=== PATIENT | male | born 1965 | race Caucasian/White ===

== ENCOUNTER 2020-03-04 18:05 | Outpatient (REF) | payer MEDICAID, SELFPAY ==
[2020-03-04 22:13] LABS: HGB 13.5 g/dL (13.5-17.5); MCH 33.8 pg (27.0-33.0); MCHC 33.8 % (32.0-36.0); MPV 11.1 fL (8.0-11.0); Platelet Count 241 10^3/uL (130-400); RDW 13.4 % (11.8-14.1); RDW-SD 49.7 fL; WBC 8.38 10^3/uL (4.4-10.8)
[2020-03-04 22:37] LABS: Iron 88 ug/dL (65-175); Total Iron Binding Capacity 322 ug/dL (250-450); Transferrin Sat 27 % (20-55)
[2020-03-04 22:49] LABS: ALT 21 U/L (16-63); Anion Gap 7.1 mmol/L (3-11); BUN 17 mg/dL (7-18); CO2 32.9 mmol/L (21.0-32.0); Calcium 8.9 mg/dL (8.5-10.1); Chloride 100 mmol/L (98-107); Ferritin 143 ng/mL (26-388); Glucose 93 mg/dL (74-106); LDL CHOLESTEROL 88 mg/dL (<100); Sodium 140 mmol/L (136-145)
== END 2020-03-04 18:25 ==
LOC: NCHCN 18:05
PROVIDERS: PCP Internal Medicine; Visit Provider Internal Medicine
DX: D64.9 Anemia, unspecified (principal); I10 Essential (primary) hypertension; F11.21 Opioid dependence, in remission; M17.0 Bilateral primary osteoarthritis of knee; E66.9 Obesity, unspecified
CPT/HCPCS: 80048; 83721; 85027; 82728; 83540; 83550; 84460

== ENCOUNTER 2021-04-01 17:55 | Outpatient (REF) | payer MEDICAID, SELFPAY ==
[2021-04-02 06:55] LABS: BUN 10 mg/dL (7-18); CREATININE 0.8 mg/dL (0.70-1.30); Calcium 8.8 mg/dL (8.5-10.1); Chloride 104 mmol/L (98-107); Glucose 101 mg/dL (74-106); LDL CHOLESTEROL 87 mg/dL (<100); Potassium 4.2 mmol/L (3.5-5.1); Sodium 142 mmol/L (136-145)
[2021-04-02 06:56] LABS: ALT 21 U/L (16-63); Anion Gap 9.4 mmol/L (3-11); CO2 28.6 mmol/L (21.0-32.0)
== END 2021-04-01 17:56 | disposition home or self-care (01) ==
LOC: NCHCN 17:55
PROVIDERS: PCP Internal Medicine; Visit Provider Internal Medicine
DX: F11.21 Opioid dependence, in remission (principal); M17.9 Osteoarthritis of knee, unspecified; K04.7 Periapical abscess without sinus
CPT/HCPCS: 80048; 83721; 84460

== ENCOUNTER 2022-06-13 10:27 | Outpatient (CLI) | payer MEDICAID, SELFPAY ==
--- NOTE | 2022-06-13 10:00 | DI.RAD_ITS ---
Exam(s) XR STANDING ALIGNMENT EXAM: XR STANDING ALIGNMENT CLINICAL HISTORY: L TKR planning. TECHNIQUE: 2D digital imaging was performed. Standing AP views were performed from the pelvis throu gh the ankles. COMPARISON: No exams were available for comparison FINDINGS: BONES: No acute fracture is present. No bony destructive lesion is seen. Leg length discrepancy: No significant JOINTS: Knees: Severe narrowing bilateral medial femoral tibial joint spaces, left greater than right . Prior left ACL repair. Prominent bilateral varus angulation at the knees, left greater than right . The ankle joints are unremarkable. The hip joints are unremarkable. SOFT TISSUE: Normal. IMPRESSION: Severe degenerative changes of both knees, left greater than right. No significant leg length discrepancy. DATA REPOSITORY: RADIATION DOSE DELIVERED:
== END 2022-06-13 10:28 | disposition home or self-care (01) ==
LOC: DIORS 10:27
PROVIDERS: PCP Internal Medicine; Referring Provider Internal Medicine; Visit Provider Physician Assistant
DX: M17.0 Bilateral primary osteoarthritis of knee (principal)
CPT/HCPCS: 77073

== ENCOUNTER 2022-06-30 01:52 | Outpatient (CLI) | payer MEDICAID, SELFPAY ==
[2022-06-30 15:15] LABS: HCT 39.2 % (40.0-50.0); HGB 13.7 g/dL (13.5-17.5); MCH 34.7 pg (27.0-33.0); MCHC 34.9 % (32.0-36.0); MCV 99 fL (80-95); MPV 9.3 fL (8.0-11.0); Platelet Count 244 10^3/uL (130-400); RBC 3.95 10^6/uL (4.36-5.78); RDW 14.2 % (11.8-14.1); RDW-SD 52.4 fL; WBC 8.29 10^3/uL (4.4-10.8)
[2022-06-30 16:09] LABS: Anion Gap 7.2 mmol/L (3-11); BUN 11 mg/dL (7-18); CO2 29.8 mmol/L (21.0-32.0); CREATININE 0.7 mg/dL (0.70-1.30); Chloride 101 mmol/L (98-107); Estimated GFR 107.47 (mL/min/1.73m2); Glucose 95 mg/dL (74-106); Sodium 138 mmol/L (136-145)
== END 2022-06-30 01:53 | disposition home or self-care (01) ==
LOC: LBO 01:52
PROVIDERS: PCP Internal Medicine; Visit Provider Student in an Organized Health Care Education/Training Program
DX: M17.12 Unilateral primary osteoarthritis, left knee (principal); Z01.818 Encounter for other preprocedural examination
CPT/HCPCS: 36415; 80048; 85027

== ENCOUNTER 2022-07-06 07:19 | Day surgery (SDC) | payer MEDICAID, SELFPAY ==
[2022-07-06] VITALS (9 sets, daily range): BP systolic 116–197; BP diastolic 50–88; PULSE 70–88; RESP 17–25; TEMP 36.2–37; O2SAT 95–98; BMI 34.7
--- NOTE | 2022-07-06 07:48 | DSE_ITS ---
Date of service: 07/06/22 Time of Service: 12:48 DS: Diagnosis Discharge Diagnosis (1) Left knee DJD: Status: Acute Discharge Plan Disposition Patient Disposition: Home Condition: Good Discharge Details Reason For Visit: Left Knee DJD Attending Provider: Mateo Moyer Primary Care Provider: Sesar Jarrett Home Meds and New Rx's Prescriptions: New acetaminophen 500 mg tablet 1,000 mg PO Q8H PRN (Reason: pain) Qty: 90 3RF aspirin 81 mg tablet,delayed release (DR/EC) 81 mg PO BID Qty: 60 0RF dexamethasone 4 mg tablet 4 mg PO DAILY Qty: 2 0RF Rx Instructions: Starting Post-Operative Day #1 (Day after surgery) gabapentin 300 mg capsule 300 mg PO QHS Qty: 14 1RF naproxen 500 mg tablet 500 mg PO BID Qty: 60 0RF pantoprazole 40 mg tablet,delayed release (DR/EC) 40 mg PO DAILY Qty: 30 0RF oxycodone 15 mg tablet 15 mg PO Q4H PRNQty: 18 0RF No Action buprenorphine-naloxone [Suboxone] 12-3 mg film 1 film buccal Q24H benazepril-hydrochlorothiazide 20-25 mg tablet 1 tab PO DAILY naloxone [Narcan] 4 mg/actuation spray,non-aerosol 4 mg intranasal Q2M PRN Rx Instructions: spray 1 dose into ONE nostril; alternate nostrils w each dose until help arrives naproxen 500 mg tablet 500 mg PO BID PRN Spiriva with HandiHaler 18 mcg capsule, w/inhalation device 1 cap inhalation DAILY Rx Instructions: puncture 1 cap using device; one dose = 2 inhalations buprenorphine-naloxone [Suboxone] 8-2 mg film 2 film sublingual DAILY Rx Instructions: place 1 strip/tab under (each) side of tongue albuterol sulfate [ProAir HFA] 90 mcg/actuation HFA aerosol inhaler 2 puff inhalation Q6H PRN Discharge Instructions Additional Instructions: Total Knee Discharge Instructions Activity: The most important activity is to walk and to work on gentle motion (both flexion and extension). You should try to take short walks a few times a day. It is important that when resting you work on keeping the knee straight. Avoid putting a pillow behind the knee as this will encourage flexion. Work on range of motion exercises as provided by Physical Therapy. - Start outpatient physical therapy within 2 weeks. - You should wear the DONALDO hose on both legs for 2 weeks. You may remove these at night. You may also use any compression sock in place of the DONALDO hose. - Utilize [employer] to review exercises, see videos on exercises and obtain basic information pertaining to your surgery and your recovery. Dressing: Remove the Benny wrap by 2 days after your surgery and put on the DONALDO stocking given to you from the hospital. Keep the surgical dressing (underneath the BENNY wrap) in place for at least one week. After the first week it may be removed and replaced with light gauze and tape or nothing. The wound and dressing may get wet after 3 days but avoid soaking the dressing or otherwise it will need to be changed. Many people prefer covering the dressing with cling wrap (saran wrap) to minimize it from getting soaked. If it gets wet, just pat dry. If it starts to peel off then it will need to be changed. Medications: - You should take Tylenol and anti-inflammatory Naproxen as your primary pain control medications. If the Celebrex is too expensive or not covered, please call the office for another alternative (Advil/Ibuprofen or Naproxen/Aleve) - You have been prescribed a stronger pain medication Oxycodone for breakthrough pain, take as needed as prescribed. Take as little as this as needed. You will continue to take your Suboxone as previously prescribed. - You have also been prescribed a stomach acid reduction agent Pantoprozole to help reduce stomach acid and reflux. - You have been prescribed Gabapentin to take at night for restlessness and nerv e pain. - You will be taking Aspirin 81mg twice a day for DVT prevention unless instructed otherwise. - You have also been prescribed Decadron to take to control post-operative nausea and pain. You will start this tomorrow. - If you have constipation you should take Colace or Miralax (both [id number]). It takes most people 3-4 days to have a bowel movement. Follow-up: 2 weeks If you have any acute concerns or questions, please do not hesitate to contact the office at [phone]. You may contact Dr. Moyer with any questions after hours through the hospital at [phone] or on his cell phone at [phone]. Referrals: Mateo Moyer MD [ [facility] STAFF PHYSICIAN] - Equipment/Supplies: Walker Activity:: Activity as Tolerated Shower/Bathe:: Cover Diet:: As Tolerated Discharge Orders Discharge Orders: Discharge Order (Routine); Ordered 07/06/22 Ordered By: Mateo Moyer DS: Summary Time Spent with Patient providing and/or coordinating discharge services: Less than 30 minutes Status at Discharge Functional status at discharge: uses cane/walker Overall status at discharge: patient is progressing back to baseline Mental Status: mental status grossly normal Speech and Movement: speech and movement normal Mood: congruent mood Affect: normal affect Exam Psych Mental Status: mental status grossly normal Speech and Movement: speech and movement normal Mood: congruent mood Affect: normal affect DS: Data Vitals/I&O Vitals and I&O: Vital Signs Temperature 37 C 07/06/22 07:41 Pulse 79 07/06/22 07:41 Pulse Rhythm Regular 07/06/22 07:41 Respiratory Rate 18 07/06/22 07:41 Respiratory Depth Normal 07/06/22 07:41 Blood Pressure 127/86 07/06/22 07:41 Pulse Oximetry 97 07/06/22 07:41 Oxygen Delivery Method Room Air 07/06/22 07:41 Oxygen Flow Rate 0 07/06/22 07:41 Intake & Output 07/05/22 07/05/22 07/06/22 11:59 23:59 11:59 Weight 109.9 kg PFSH All Active Problems COPD (chronic obstructive pulmonary disease) (Chronic) Left knee DJD (Acute) Hypertension (Chronic) MATTHEW (obstructive sleep apnea) (Chronic) Smoker (Acute) Hyperlipidemia (Acute) Venous insufficiency (Acute) Bilateral primary osteoarthritis of knee (Acute) Medical History Dyspnea on exertion Erectile dysfunction History of narcotic addiction Sciatica, right side TB lung, latent Surgical History Left inguinal hernia (~2006) S/P ACL reconstruction (2009) Left knee Social History Smoking/Tobacco Use Status: Current every day Tobacco Type: cigarettes Tobacco: How many years used: 34 Smoking risk assessment performed?: Yes Alcohol Intake: current Alcohol Intake frequency: a few times a week Alcohol type: beer Drug use: Occasionally Substance use type: crack/cocaine Details: on suboxone - last PCP note from 07/29/21 reports sporadic use of cocaine Do you feel safe at home: Yes Do you feel safe in your relationship?: Yes Time Spent with Patient Time Spent with Patient: <45 minutes Time was spent: preparing to see the patient(eg.review tests), ordering medications,tests, procedures and counseling the patient
--- NOTE | 2022-07-06 07:55 | ANES.PREOP_ITS ---
General Info Date of Service Date Performed: 07/06/22 Height: 5 ft 10 in Weight: 109.9 kg Body Mass Index (BMI): 34.7 Surgical Procedure: Operation Date: 07/06/22 10:40 Proposed Procedure Side Surgeon p Knee Total Arthroplasty, OrthAlign, Cementless PS Left Mateo Moyer MD Meds Allergies and Home Medications Allergies Allergy/AdvReac Type Severity Reaction Status Date / Time codeine AdvReac Intermediate gi upset Verified 07/06/22 07:48 Penicillins AdvReac Intermediate GI upset Verified 07/06/22 07:48 Home Medication Medication Instructions Recorded albuterol sulfate 90 mcg/actuation 2 puff inhalation Q6H PRN 08/03/21 aerosol inhaler (ProAir HFA) benazepril 20 1 tab PO DAILY 08/03/21 mg-hydrochlorothiazide 25 mg tablet buprenorphine 8 mg-naloxone 2 mg 2 film sublingual DAILY 08/03/21 sublingual film (Suboxone) naloxone 4 mg/actuation nasal 4 mg intranasal Q2M PRN 08/03/21 spray (Narcan) naproxen 500 mg tablet 500 mg PO BID PRN 08/03/21 tiotropium bromide 18 mcg capsule 1 cap inhalation DAILY 08/03/21 with inhalation device (Spiriva with HandiHaler) buprenorphine 12 mg-naloxone 3 mg 1 film buccal Q24H 06/13/22 sublingual film (Suboxone) acetaminophen 500 mg tablet 1,000 mg PO Q8H PRN pain #90 tabs 07/06/22 aspirin 81 mg tablet,delayed 81 mg PO BID #60 tabs 07/06/22 release dexamethasone 4 mg tablet 4 mg PO DAILY #2 tabs 07/06/22 gabapentin 300 mg capsule 300 mg PO QHS #14 caps 07/06/22 naproxen 500 mg tablet 500 mg PO BID #60 tabs 07/06/22 oxycodone 15 mg tablet 15 mg PO Q4H PRN #18 tabs 07/06/22 pantoprazole 40 mg tablet,delayed 40 mg PO DAILY #30 tabs 07/06/22 release Current Visit Medications: Current Medications Generic Name Dose Route Start Last Admin Trade Name Freq PRN Reason Stop Dose Admin Acetaminophen 1,000 mg 07/06/22 06:00 Acetaminophen 500 Mg Tab PO 07/06/22 18:00 PREOP ABDIRIZAK Acetaminophen 1,000 mg 07/06/22 08:30 Acetaminophen 500 Mg Tab PO TID ABDIRIZAK Celecoxib 400 mg 07/06/22 06:00 Celecoxib 200 Mg Cap PO 07/06/22 18:00 PREOP ABDIRIZAK Gabapentin 300 mg 07/06/22 06:00 Gabapentin 300 Mg Cap PO 07/06/22 18:00 PREOP ABDIRIZAK Hydromorphone HCl 1 mg 07/06/22 07:47 Hydromorphone 2 Mg/Ml Syr IVP Q2H PRN PRN Tranexamic Acid 1,000 mg/ 60 mls @ 360 mls/hr 07/06/22 06:00 Sodium Chloride IVPB 07/06/22 18:00 PREOP ABDIRIZAK Ringer's Solution 1,000 mls @ 80 mls/hr 07/06/22 06:00 IV 08/04/22 23:59 INFUSION ABDIRIZAK Cefazolin Sodium/Dextrose 2 gm in 50 mls @ 100 mls/hr 07/06/22 06:00 Ancef Duplex IVPB 08/04/22 23:59 PREOP ABDIRIZAK Cefazolin Sodium/Dextrose 1 gm in 50 mls @ 100 mls/hr 07/06/22 12:00 Ancef Duplex IVPB 07/07/22 04:29 Q8H [facility] IV Miscellaneous Supplies 1 each 07/06/22 06:00 Iv Access IV 08/04/22 23:59 DIRECTED ABDIRIZAK Ondansetron HCl 4 mg 07/06/22 07:47 Ondansetron 4 Mg/2 Ml Vial IVP Q6H PRN PRN Nausea Oxycodone HCl 0 mg 07/06/22 07:47 Oxycodone 5 Mg Tab PO Q3H PRN PRN Pain Sodium Chloride 0 ml 07/06/22 06:00 Normal Saline Flush 10 Ml Syr IV 08/04/22 23:59 PRN PRN Sodium Chloride 0 ml 07/06/22 06:00 Normal Saline 10 Ml Vial IJ 08/04/22 23:59 DIRECTED PRN Sterile Water 0 ml 07/06/22 06:00 Water,Injection,Sterile 10 Ml Vial IJ 08/04/22 23:59 DIRECTED PRN PFSH Active Problems Active Problems: Problem Status Onset Code COPD (chronic obstructive pulmonary disease) J44.9 Left knee DJD M17.12 Hypertension I10 MATTHEW (obstructive sleep apnea) G47.33 Smoker F17.200 Hyperlipidemia E78.5 Venous insufficiency I87.2 Bilateral primary osteoarthritis of knee M17.0 Medical History Medical History Dyspnea on exertion Erectile dysfunction History of narcotic addiction Sciatica, right side TB lung, latent Medical History Comments:: 07/06/22 - reports some post nasal drip. Also reports dry mouth. Smoked cigarette at 6:30am. Pt reports sometimes his sinues close up ayt night time Surgical History Surgical History Left inguinal hernia (~2006) S/P ACL reconstruction (2009) Left knee Tobacco Smoking/Tobacco Use Status: Current every day Tobacco Type: cigarettes Smoking cigarettes per day: 20 Alcohol Alcohol Intake: current Alcohol intake frequency: a few times a week Alcohol type: beer Substance Use Substance use: Occasionally Substance use type: crack/cocaine Details: on suboxone - last PCP note from 07/29/21 reports sporadic use of cocaine Vital Signs and Lab Results Vital Signs Most Recent Vital Signs in EMR: Most Recent Vital Signs Temp Pulse Resp BP Pulse Ox 37 C 79 18 127/86 97 07/06/22 07:41 07/06/22 07:41 07/06/22 07:41 07/06/22 07:41 07/06/22 07:41 Lab Results Blood Type / Crossmatch: No Data to Display Complete Blood Count: White Blood Count 8.29 10^3/uL (4.4-10.8) 06/30/22 15:10 Red Blood Count 3.95 10^6/uL (4.36-5.78) L 06/30/22 15:10 Hemoglobin 13.7 g/dL (13.5-17.5) 06/30/22 15:10 Hematocrit 39.2 % (40.0-50.0) L 06/30/22 15:10 Platelet Count 244 10^3/uL (130-400) 06/30/22 15:10 Complete Metabolic Panel: Sodium 138 mmol/L (136-145) 06/30/22 15:10 Potassium 4.0 mmol/L (3.5-5.1) 06/30/22 15:10 Chloride 101 mmol/L (98-107) 06/30/22 15:10 Carbon Dioxide 29.8 mmol/L (21.0-32.0) 06/30/22 15:10 BUN 11 mg/dL (7-18) 06/30/22 15:10 Creatinine 0.7 mg/dL (0.70-1.30) 06/30/22 15:10 Est GFR (CKD-EPI 2020) 107.47 (mL/min/1.73m2) 06/30/22 15:10 Calcium 9.0 mg/dL (8.5-10.1) 06/30/22 15:10 Glucose 95 mg/dL (74-106) 06/30/22 15:10 Liver Function Panel: No Data to Display Coagulation Panel: No Data to Display Cardiac Panel: No Data to Display Arterial Blood Gas: No Data to Display Venous Blood Gas: No Data to Display Pancreas Panel: No Data to Display Thyroid Panel: No Data to Display Infectious Disease: No Data to Display Blood Cultures: No Data to Display Toxicology Panel: No Data to Display Anesthesia Assessment and Plan Anesthesia History Personal History: No History of Anesthesia Complications Family History: No Family History of Anesthesia Complications Exercise Tolerance Exercise Tolerance: Metabolic Equivalents>4 Pertinent Negatives Pertinent Negatives: No Symptoms of GERD Cardiac & Pulmonary Exam Cardiac Exam: Normal S1/S2 Heart Sounds Pulmonary Exam: Clear Bilateral Breath Sounds Implantable Cardiac Device Does patient have a Pacemaker or an ICD?: No Airway Exam Known Difficult Airway: No Mallampati Class: 1 Mouth Opening: Normal (> 3cm) Thyromental Distance: Greater than 3 cm Neck Range of Motion: Full ROM Neck Circumference: Normal Teeth Condition: Normal Dentition ASA Classification ASA Score: ASA 2 Emergency Case?: No NPO Status NPO Status: NPO Clears >2 hours, Solids >8 hours Anesthesia Plan Resuscitation Status: Full Code Anesthesia Technique: Spinal Anesthesia Airway Planned: Natural Airway Pain Management: Surgeon and patient request nerve block Monitors Used: Standard Monitors
[2022-07-06] MEDS: Acetaminophen 500 MG TAB 1000 MG PO (08:00)
[2022-07-06] MEDS: Gabapentin 300 MG CAP PO (08:00)
[2022-07-06] MEDS: Lactated Ringers 1,000 ML 80 ML IV (08:14)
--- NOTE | 2022-07-06 08:52 | W.ANESNERVE ---
Nerve Block Single Injection Procedure Date and Time Date Performed: 07/06/22 Procedure Start: 08:32 Location Where Procedure Performed Procedure Location: Day Surgery Unit Reason Performed: Postoperative Analgesia Requesting Provider: Mateo Moyer Timeout Performed Timeout Performed: Yes Monitoring Used ECG, Blood Pressure, SpO2 and See EMR for corresponding vital signs Sterility Sterility: Hand Hygiene, Surgical Cap, Surgical Mask, Sterile Gloves and Chlorhexidine Sedation Given During Procedure Sedation Given (Indicate Dose Given): No Sedation given Patient Mental Status Patient Mental Status: Awake Nerve Block 1st Nerve Block: Laterality: Left Block Type: Adductor Canal Ultrasound Image Saved?: Yes Needle / Catheter Used: 100mm SonoPlex II Local Anesthetic Bolus (Indicate Dose Given): Lidocaine used for local infiltration of skin, Injected in 3-5ml increments after negative blood aspiration and Bupivacaine 0.25% Dose:: 20ml Additives (Indicate Dose Given): None Ultrasound: Sterile probe cover and gel used Nerve Stimulator: Not Used Paresthesia: None Procedure Tolerated: No Complications and Patient tolerated well Procedure Outcome: Successful Performed By: Kuldip Dooley
[2022-07-06] MEDS: ceFAZolin 2 GM/50 ML BAG IVPB (09:25)
--- NOTE | 2022-07-06 11:40 | ROE_ITS ---
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 Depuy Attune Cementless Posterior Stabilized Femoral Component, Size 8 2. Depuy Attune Cementless Rotating Platform Tibial Component, Size 8 3. Depuy Attune 8x14 PS/RP Poly 4. Depuy Attune Patellar Component, Size 38 Indications: I have seen Stuart in clinic for symptoms of RIGHT knee arthritis, confirmed with radiographic findings. Stuart has exhausted nonoperative methods and was having significant limitations in daily function and desired better function and less pain. I discussed the technical details of a knee replacement. I explained the risks of the procedure to include, but not limited to, bleeding, infection, pain, stiffness, fracture, damage to nerves and vessels, damage to muscles and tendons, loosening, need for repeat procedure, blood clot and cardiopulmonary demise. Despite these risks, Stuart elected to proceed. Findings: There was significant signs of arthritis throughout the knee involving all 3 compartments. There is significant deformity of the medial tibia with large osteophytes present throughout. Additionally, there is a chronic appearing avulsion with intratendinous bone at the very inferior aspect of the inferior pole of the patella. Procedure Description: Stuart was greeted in the preoperative holding area where the correct side was identified and marked. The consent was reviewed with the patient and signed. The history and physical was updated. All questions were answered. Preoperative mediacations were administered: Acetaminophen 1000mg, Celebrex 400mg, and Gabapentin 300mg. An adductor canal block was then administered by the anesthesia team in the PACU. Stuart was taken back to the operating room. A spinal anesthestic was then administered. The patient was placed into the supine position on the operating room table. A nonsterile tourniquet was placed high onto the leg. Posts were placed for positioning during the procedure. All bony prominences were well padded. Prophylactic antibiotics in the form of Cefazolin were administered. 1g of Tranxemic Acid was given intravenously within 30 minutes of incision. The left leg was then prepped with Chloraprep and draped in a standard fashion with impervious stockinette. A second prep with Chloraprep was performed prior to application of Iodine impregnated skin protection. A timeout to confirm correct identity, side and site, procedure, allergies, anesthesia, and medical concerns was performed. With the knee in some flexion, a midline incision was made overlying the knee. Full thickness skin flaps were raised once the extensor mechanism was encountered. These were raised medially and laterally. Any bleeding was controlled with electrocautery. Once the extensor mechanism was fully exposed, a medial parapatellar arthrotomy was performed in a flexed position. All bleeding from the arthrotomy and the geniculate arteries was coagulated. A medial subperiosteal peel was performed with electrocautery to the midcoronal plane. Due to the significant varus deformity the entire medial tibial plateau was exposed. The fat pad was removed while keeping the patellar tendon protected. The anterior distal femur synovium was removed for later visualization. The anterior horn of the lateral meniscus was transected. There is no visible ACL and the notch was completely closed by osteophytes. The knee was then flexed with the patella everted. It was evident at this time that there was a chronic avulsion of the distalmost aspect of the inferior pole of the patella. There is a small amount of bone within the tendon at this level as well. It was stable. Large osteophytes from the patella at this time were removed. The patella was cut to a thickness of 14 mm to aid with visualization. Large osteophytes from the tibia were removed. Large osteophytes from the femur were removed. There was notable deformity of the medial tibia. A single starting pin was then placed 1cm anterior to the PCL insertion and the notch in the direction of the femoral head after removing osteophytes from the notch. The OrthoAlign device was applied over the pin. It was oriented to be in line with the epicondylar axis and the trochlear groove. It was then pinned into place. The navigation computer was then turned on and calibrated. The distal femur cut was set at 2 degrees of varus and 3 degrees of flexion. The distal femur cutting guide then was positioned for a 9mm cut. The distal femur was cut with an oscillating saw while protecting the soft tissues. The tibia was then addressed. The OrthoAlign device was placed over the tibial tubercle and medial tibia and secured into position. Once again, OrthoAlign was calibrated and then set for a 3 degrees varus cut and 5 degrees of posterior slope. With this locked into position, the cut thickness stylus was used to assess cut thickness. The medial side, most involved side, was set for a 1mm cut. This was then held in position and pinned into place with 2 additional pins and a cross pin for stability. The medial and lateral collateral ligaments were protected and the cut was performed. With this completed, it was assessed and noted to be of appropriate dimensions. This initial cut was quite difficult given the size of the bone as well as the large osteophytes. With the use of an osteotome the proximal tibial cut was removed. I then further exposed the proximal tibial surface and removed any additional bone spurs from the periphery of the medial aspect of the tibia as well as evaluate the lateral side of the tibia. Soft tissues are once again protected with better visualization and the proximal tibia is cut once again to ensure a smooth planar surface. Then, the guide and OrthoAlign was removed. A spacer block was inserted and the knee was brought into extension to ensure enough space was present. The femur was then sized as a size 8. The Orthoalign gap balancing device was then placed in extension. This was used to ensure that the ligaments were properly balanced with up to 2 to 3 mm laxity laterally compared medially. The extension gap was measured as 26mm. The knee was then brought into 90 degrees of flexion and the ligament boring machine operator vertical was once again placed. Under the same amount of force the flexion gap was measured. The attending specific jig was placed and the flexion gap was made to match the extension gap. The 4-in-1 cutting guide was the placed. An nell wing was used to confirm appropriate position of the anterior cut to avoid notching. This cutting guide was ensured to be flush on the cut surface and then pinned into place with headed pins. While protecting the soft tissues, quad tendon, and collateral ligaments, the anterior and posterior cuts were performed with a saw. The central two pins were removed and the posterior and anterior chamfers were cut next. The notch-cutting guide was placed. This was pinned to lateralize the femoral component as much as possible while keeping it flush on the cut surface. This was then pinned into position. A saw was used to make the notch cut. A rasp smoothed the cut surfaces. The medial and lateral menisci were removed. A trial femoral component was then inserted, impacted down to the cut surfaces, and the lug holes were drilled. A provisional trial tibial component was placed and the knee was brought through range of motion. The polyethylene was trialed until there was good flexion and extension with excellent stability to the medial and lateral collaterals. The patella was tracking without thumbs. A size 14mm polyethylene component provided the best range of motion and stability with less than 2mm gapping with medial and lateral stress and full extension without significant hyperextension. The tibial cut surface was fully exposed. The tibia was then sized as a 8. The tibia had been previously marked during trialing to correspond to the center of the tibial component to help with rotation. The trial was aligned to this gale, approximately rotated to the medial 1/3rd of the tibial tubercle. The trial was pinned into place. The tibia was prepared with a reamer and a keel punch and lug holes. The size 38 patella fit the best. This was oriented and then clamped into position. The lugs were drilled. The trial components were removed. The final components were opened on the back table. The periosteal and capsular tissues, especially posteriorly, around the knee were then systematically injected with a periarticular cocktail consisting of 246mg of Ropivacaine, 0.5mg of Epinephrine, 0.08mg of Clonidine, and 30mg of Ketorolac, diluted to 100cc. On the back table, with the implants opened, the cement was mixed. One batch of high viscosity cement was prepared with vacuum assistance. After the cement was ready a small amount was placed on the cut surface of the patella and the patellar button was clamped into position and held. While the cement was hardening, the cementless knee components were placed. Starting with the tibial component, the tibia was subluxed anteriorly and the lug holes of the component were lined up. The tibia was then impacted with an impactor and mallet until the tibial component was in contact with the tibia. Then, the femoral component was inserted. The lug holes were aligned and the component was impacted into position. The knee was irrigated with Surgiphor Betadine solution. This was allowed to sit in the knee for 3 minutes and then it was thoroughly irrigated out with saline. After the cement had finally cured, approximately 15min, the clamp was removed from the patella and the knee was taken through range of motion. The patella was tracking with a no-thumbs technique. Then, the real component inserted. I then used the #2 FiberWire to reapproximate the chronic avulsed area from the inferior pole of the patella. This was done by traveling through the edge of bone at the inferior pole out the quadriceps and then back through the bone passing out into the deep layer of the patellar tendon. With traction, this suture reapproximated the inferior pole tissue. This was tied and cut. I then used a #2 FiberWire to help reapproximate the capsule and quadriceps at various locations. The capsule was finally closed with a No. 2 Stratafix, barbed suture. Deep tissues were then reapproximated with 0 Vicryl and 2-0 Vicryl. The skin was closed with a running 3-0 Monocryl in a subcuticular fashion. This was reinforced with skin glue. A Mepilex silver dressing was applied along with a [id number] JUAN wrap. A CryoCuff was applied. Stuart was transferred to the hospital bed without difficulty an suffering no apparent complication. Stuart has a good prognosis. Physical therapy will start today and without restrictions, weight-bearing as tolerated. Aspirin 81mg BID will be used for DVT prophylaxis.
[2022-07-06] MEDS: fentaNYL 100 MCG/2 ML VIAL IVP (12:10)
[2022-07-06] MEDS: diazePAM 5 MG TAB PO (13:05)
--- NOTE | 2022-07-06 14:35 | PT.INIE ---
Date of service: 07/06/22 Time of Service: 13:45 PT Notes Visit Reasons: Left Knee DJD Physical Therapy Day Surgery Initial Evaluation Date: 07/06/2022 Referring Doctor: Mateo Moyer MD PT Orders: PT CONSULT: S/P Ortho Surgery Precautions: WBAT on the L LE with AD. Patient Profile/Admitting Diagnosis: Brandin is a 56-year-old male with primary unilateral osteoarthritis of the left hip but is status post left total knee arthroplasty on postoperative day 0. PMHX: Medical History?(Updated 06/30/22 @ 14:20 by Shilpi Stubbs) Dyspnea on exertion Erectile dysfunction History of narcotic addiction Sciatica, right side TB lung, latent Surgical History?(Updated 06/30/22 @ 14:20 by Shilpi Stubbs) Left inguinal hernia (~2006) S/P ACL reconstruction (2009) Left knee Social History/Home Situation: Lives with in a private home with 15 steps to enter with rails on both sides. Modified independent with all aspects of ADLs prior to surgery due to worsening left knee arthritis. Equipment Owned/DME: None Subjective: Reports 3-4/10 pain in the left knee with at rest and with weight bearing. Denies headache, chest pain, and lightheadedness throughout. Per nurse Rochelle and nurse Madonna patient was given 10 mg of diazepam to address new onset restless leg syndrome. Objective: General Observation: Heating pad over distal left thigh. JUAN wraps to left LE. Mental Status: Mildly drowsy but oriented x4 Pain: 3?4/10 in the left knee at rest and with weightbearing ROM: Right Lower Extremity: Hip flexion WFL. Hip abduction WFL. Knee flexion WFL. Ankle dorsiflexion WFL. Ankle plantarflexion WFL. Left Lower Extremity: Hip flexion WFL. Hip abduction WFL. Knee flexion 10 degrees to 90 degrees. Knee extension -10 degrees. Ankle dorsiflexion WFL. Ankle plantarflexion WFL. Strength: Right Lower Extremity: Hip flexors 5/5. Hip abductors 5/5. Knee flexors 5/5. Knee extensors 5/5. Ankle dorsiflexors 5/5. Ankle plantarflexors 5/5. Left Lower Extremity:Hip flexors 5/5. Hip abductors 5/5. Knee flexors 3-/5. Knee extensors 3-/5. Ankle dorsiflexors 5/5. Ankle plantarflexors 5/5. Sensation: Intact to pain and light pressure in bilateral lower extremities Bed Mobility/Transfers: Sit to stand contact-guard assist Stand to sit standby assist Bed to chair standby assist Gait: Tolerated level surface ambulation of 150 feet using front wheeled walker with step to gait pattern. Impaired left quad activation requiring cues to allow for full knee extension at L mid stance prior to advancing the opposite right LE. Cues given for walker management. Nurse Madonna providing wheelchair follow for safety Stairs: 6 x 4 inch steps and 4 x 6 inch steps while holding onto bilateral rails with step to gait pattern requiring standby assist. Balance: Static Sitting: Normal Dynamic Sitting: Normal Static Standing: Fair Dynamic Standing: Fair Special Tests: Mobility Limitations Standardized Measure [facility] AM-PAC 6 clicks Basic Mobility Inpatient Short Form: Raw Score: 22 CMS Score: 21% deficit Informed Consent/Education: Patient instructed in purpose of PT consult. Packet containing TKA exercise protocol has been given to patient. Education and training on initial set of exercises that can be done at home have been completed with patient. THERA EX: Quads sets x 5 while reclined on chair Heel slides x 5 while reclined on chair Small range partial SLR x 5 while reclined on chair Ankle DF/PF x 10 Seated marches x 5 Assessment: Brandin requires the use of a front wheel walker for all mobility ADL performance in order to maximize independence and reduce fall risk. Patient presents with clinical signs and symptoms consistent with current/admitting diagnoses that have resulted to mobility limitations, gait instability, generalized weakness, and impairment of motor control as demonstrated by the following impairment level findings: 1. Decreased strength to left knee major muscle groups 2. Impaired standing balance 3. Limitation of joint range of motion in left knee Impairments are contributing to the following functional limitations: 1. Inability to safely ambulate without assistive device 2. Increase completion time for mobility ADL performance 3. Increased fall risk Patient is assessed as a 70417 moderate complexity based on the following: History: 56-year-old male with impairment level findings, functional limitations, and past medical history as indicated above Examination: Demonstrable impairment in strength, balance, and mobility level with underlying impairments and functional limitations as documented above Presentation: Evolving Decision Makin moderate complexity Goals: N/A. PT evaluation and 1-2 treatment sessions only for functional mobility training using recommended AD and for HEP instruction. Plan of Care/Treatment Plan: N/A. PT evaluation and 1-2 treatment session only for functional mobility training using recommended AD and for HEP instruction. DISCHARGE RECOMMENDATIONS: [] Home with no services [] [] Home with services [specify] [X] Home with outpatient PT. Home when medically cleared by orthopedic surgeon. Recommend outpatient PT services in order to optimize functional mobility outcomes and facilitate return to independent community ambulation without an assistive device. [] SNF for continued rehabilitation [] [] Residential Care [] [] SNF versus LTC based on ability to participate and progress [] TREATMENT CODE/TIME: 16066 x 20 minutes, 21099 x 18 minutes beginning at 13:45 PM. Colten Childs MD Thank you for the opportunity to participate in the care of this patient. Evangelina Buchanan PT, DPT, CLT [facility] [place], [place]
--- NOTE | 2022-07-06 15:27 | W.ANESPOSTOP ---
Postoperative Evaluation Date, Time and Location Date Performed: 07/06/22 Time Performed: 14:00 Patient Location: Day Surgery Unit Vital Signs Most Recent Imported Vital Signs: Most Recent Vital Signs Temp Pulse Resp BP Pulse Ox 36.3 C L 85 18 197/77 H 98 07/06/22 13:40 07/06/22 13:40 07/06/22 13:40 07/06/22 13:40 07/06/22 13:40 Pain Score Most Recent Pain Score: Most Recent Pain Score Pain Level 0 07/06/22 13:40 Assessment Mental Status: Awake (Alert & Oriented to Patient Baseline) Airway and Respiratory Function: Patent airway with normal (patient baseline) respiratory exam Cardiovascular Function: Hemodynamically Stable Hydration Status: Adequately Hydrated Nausea & Vomiting: No Nausea or Vomiting Pain: Pt. Denies Any Pain Peripheral Nerve Block: Regional nerve block not resolved at time of post operative discharge Postoperative Comments:: Legs are no longer restless. He is comfortable and able to still as per his baseline.
== END 2022-07-06 15:45 | disposition home or self-care (01) ==
PROVIDERS: PCP Internal Medicine; Visit Provider Student in an Organized Health Care Education/Training Program
PROC: (CPT 27447; principal; 2022-07-06 10:30)
DX: M17.12 Unilateral primary osteoarthritis, left knee (principal)
CPT/HCPCS: 27447; 20985; 76942; 97162; 97530; J0690; J1100; J2250; J2370; J2405; J2704; J3010

== ENCOUNTER 2022-07-21 10:28 | Outpatient (CLI) | payer MEDICAID, SELFPAY ==
--- NOTE | 2022-07-21 09:30 | DI.RAD_ITS ---
Exam(s) XR KNEE LT 1V XR STANDING ALIGNMENT EXAM: XR STANDING ALIGNMENT and XR knee LT 1 V CLINICAL HISTORY: 1ST POST OP L TKA. TECHNIQUE: 2D digital imaging was performed. Five images were obtained. COMPARISON: CR XR STANDING ALIGNMENT from 06/13/2022 FINDINGS: BONES: The hips are well maintained. Since the prior examination the patient is now status post left total knee replacement. The orthopedic hardware appears in good position. No evidence of hardware failure is seen. There is soft tissue swelling around the knee. There are marked degenerative claire es seen in the right knee with marked joint space narrowing medially and both mediolateral periarticu lar spurring present. The ankles are well maintained.There is no significant leg length discrepancy. SOFT TISSUE: Atherosclerosis is present. IMPRESSION: 1. Stable left TKA. 2. Marked degenerative changes of the right knee. DATA REPOSITORY: RADIATION DOSE DELIVERED:
== END 2022-07-21 10:29 | disposition home or self-care (01) ==
LOC: DIORS 10:28
PROVIDERS: PCP Internal Medicine; Referring Provider Internal Medicine; Visit Provider Physician Assistant
DX: Z96.652 Presence of left artificial knee joint (principal); Z47.1 Aftercare following joint replacement surgery; M17.11 Unilateral primary osteoarthritis, right knee
CPT/HCPCS: 73560; 77073

== ENCOUNTER 2023-11-03 16:40 | Outpatient (REF) | payer MEDICAID, SELFPAY ==
[2023-11-03 18:58] LABS: HCT 36.9 % (40.0-50.0); HGB 12.5 g/dL (13.5-17.5); MCH 33.6 pg (27.0-33.0); MCHC 33.9 % (32.0-36.0); MCV 99 fL (80-95); MPV 9.5 fL (8.0-11.0); Platelet Count 347 10^3/uL (130-400); RBC 3.72 10^6/uL (4.36-5.78); RDW 14.8 % (11.8-14.1); RDW-SD 54.4 fL; WBC 8.61 10^3/uL (4.4-10.8)
[2023-11-03 19:07] LABS: Anion Gap 6.3 mmol/L (3-11); BUN 19 mg/dL (7-18); CO2 32.7 mmol/L (21.0-32.0); CREATININE 0.8 mg/dL (0.70-1.30); Calcium 9.2 mg/dL (8.5-10.1); Chloride 103 mmol/L (98-107); Estimated GFR 101.95 (mL/min/1.73m2); Glucose 102 mg/dL (74-106); Potassium 4.3 mmol/L (3.5-5.1); Sodium 142 mmol/L (136-145)
[2023-11-03 19:15] LABS: C-Reactive Protein < 0.50 mg/dL (<or=0.5)
== END 2023-11-03 16:41 | disposition home or self-care (01) ==
LOC: NCHCN 16:40
PROVIDERS: PCP Internal Medicine; Visit Provider Internal Medicine
DX: B95.7 Other staphylococcus as the cause of diseases classified elsewhere (principal); I10 Essential (primary) hypertension; D64.9 Anemia, unspecified
CPT/HCPCS: 80048; 85027; 86140

== ENCOUNTER 2024-02-09 15:07 | Outpatient (REF) | payer MEDICAID, SELFPAY ==
--- OUTSIDE RECORDS SUMMARY | 2024-02-09 15:14 | XMS_ITS | Clinical Summary ---
Author Organization [facility] Address [address] [place] [address] Care Team Providers Care Gear Tester Name Role Phone Unavailable Primary Care Provider Unavailabl e Social History Tobacco Use Types Packs/Day Years Used Date Smoking Tobacco: Never Assessed Sex and Gender Information Value Date Recorded Sex Assigned at Not on file Gender Identity Not on file Sexual Orientation Not on file Plan of Treatment Health Maintenance Due Date Last Done Comments Hepatitis C Screen 1965 Hepatitis B Vaccine (1 of 3 - 19+ 3-dose series) 11/02 COVID-19 Vaccine (2022-24 season) 2023
--- OUTSIDE RECORDS SUMMARY | 2024-02-09 15:14 | XMS_ITS | Encounter Summary ---
Author Organization [facility] Address [address] [place] [id number] Care Team Providers Care Transportation Equipment Painter Name Role Phone Unavailable Primary Care Provider Unavailabl e Encounter Details Date Type Department Care Team (Late st Contact Info) Description 10/19/2023 Lab Requisition [facility] Pathology & Laboratory Medicine - [facility] [address], [place] [address] Outr Resulting Lab, Provider Social History Tobacco Use Types Packs/Day Years Used Date Smoking Tobacco: Never Assessed Sex and Gender Information Value Date Recorded Sex Assigned at Not on file Gender Identity Not on file Sexual Orientation Not on file documented as of this encounter Plan of Treatment Not on file documented as of this encounter Procedures Procedure Name Priority Date/Time Associated Diagnosis Comments HIV 1/2 ANTIGEN AND ANTIBODY, 4TH GENERATION Routine 10/17/2023 17:39 EDT documented in this encounter Results * HIV 1/2 ANTIGEN AND ANTIBODY, 4TH GENERATION (10/17/2023 17:39 EDT) HIV 1 and 2 Antibody/p24 Antigen, 4th Generation Negative Negative 10/19/2023 23:10 EDT [facility] Comment:If acute HIV-1 infec tion is suspected in a high risk patient, submit plasma specimen for HIV-1 RNA quantitation test. Blood VENOUS BLOOD / Unknown 10/17/2023 17:39 EDT 10/19/2023 21:41 EDT Narrative [facility] - 10/19/2023 23:10 EDT Fourth Generation assay performed on the Siemens Centaur XPT. Provider Outr Resulting Lab IMMUNOLOGY A ND SEROLOGY ORDERABLES [facility] [address] [place] [address] documented in this encounter Visit Diagnoses Not on filedocumented in this encounter
--- OUTSIDE RECORDS SUMMARY | 2024-02-09 15:14 | XMS_ITS | Referral Summary ---
Author Organization [facility] Address [address] [place] [address] Care Team Providers Care Mold Worker Name Role Phone Unavailable Primary Care Provider Unavailabl e Social History Tobacco Use Types Packs/Day Years Used Date Smoking Tobacco: Never Assessed Sex and Gender Information Value Date Recorded Sex Assigned at Not on file Gender Identity Not on file Sexual Orientation Not on file Plan of Treatment Not on file
[2024-02-09 19:15] LABS: HCT 39.8 % (40.0-50.0); HGB 13.6 g/dL (13.5-17.5); MCH 34.7 pg (27.0-33.0); MCHC 34.2 % (32.0-36.0); MCV 102 fL (80-95); MPV 10.6 fL (8.0-11.0); Platelet Count 225 10^3/uL (130-400); RBC 3.92 10^6/uL (4.36-5.78); RDW 14.4 % (11.8-14.1); RDW-SD 54.4 fL; WBC 6.67 10^3/uL (4.4-10.8)
[2024-02-09 19:27] LABS: Anion Gap 4.3 mmol/L (3-11); BUN 15 mg/dL (7-18); CO2 32.7 mmol/L (21.0-32.0); CREATININE 0.8 mg/dL (0.70-1.30); Calcium 9.7 mg/dL (8.5-10.1); Chloride 102 mmol/L (98-107); Estimated GFR 101.95 (mL/min/1.73m2); Glucose 102 mg/dL (74-106); Potassium 4.5 mmol/L (3.5-5.1); Sodium 139 mmol/L (136-145)
[2024-02-10 22:16] LABS: CRP, High Sensitivity 1.66 mg/L (See Note)
== END 2024-02-09 15:08 | disposition home or self-care (01) ==
LOC: NCHCN 15:07
PROVIDERS: PCP Internal Medicine; Visit Provider Internal Medicine
DX: B95.7 Other staphylococcus as the cause of diseases classified elsewhere (principal)
CPT/HCPCS: 80048; 85027; 86141

== ENCOUNTER 2025-02-20 19:35 | Outpatient (REF) | payer MEDICAID, SELFPAY ==
[2025-02-20 19:23] LABS: HCT 39.0 % (40.0-50.0); HGB 13.7 g/dL (13.5-17.5); MCH 36.0 pg (27.0-33.0); MCHC 35.1 % (32.0-36.0); MCV 102 fL (80-95); MPV 10.3 fL (8.0-11.0); Platelet Count 213 10^3/uL (130-400); RBC 3.81 10^6/uL (4.36-5.78); RDW 14.0 % (11.8-14.1); RDW-SD 53.0 fL; WBC 7.79 10^3/uL (4.4-10.8)
[2025-02-20 19:33] LABS: ALT 24 U/L (16-63); AST 32 U/L (15-37); Albumin 3.9 g/dL (3.4-5.0); Alkaline Phosphatase 134 U/L (46-116); Anion Gap 10.0 mmol/L (3-11); BUN 14 mg/dL (7-18); Bilirubin, Total 0.7 mg/dL (0.2-1.0); CO2 27.0 mmol/L (21.0-32.0); Calcium 8.7 mg/dL (8.5-10.1); Chloride 102 mmol/L (98-107); Estimated GFR 105.49 (mL/min/1.73m2); Glucose 140 mg/dL (74-106); Potassium 3.6 mmol/L (3.5-5.1); Sodium 139 mmol/L (136-145); Total Protein 7.6 g/dL (6.4-8.2)
== END 2025-02-20 19:36 | disposition home or self-care (01) ==
LOC: NCHCN 19:35
PROVIDERS: PCP Internal Medicine; Visit Provider Physician Assistant
DX: Z01.818 Encounter for other preprocedural examination (principal)
CPT/HCPCS: 80053; 85027